=== PATIENT | female | born 1970 | race Hispanic/Latino ===

== ENCOUNTER 2022-01-01 07:30 | Observation (INO) | payer BC ==
[2021-12-31 09:10] LABS: BASOPHILS % (AUTO) 0.4 % (0.0-5.0); EOSINOPHILS % (AUTO) 0.9 % (0.0-8.0); HEMATOCRIT 38.8 % (36-48); LYMPHOCYTES % (AUTO) 29.5 % (21.0-51.0); MEAN CORPUSCULAR VOLUME 87.8 fL (79-99); MONOCYTES % (AUTO) 7.2 % (3.0-13.0); NEUTROPHILS % (AUTO) 61.8 % (40.0-77.0); PLATELET COUNT (AUTO) 185 K/uL (130-400); RED BLOOD CELL COUNT(AUTO) 4.42 MIL/uL (4.00-5.50); RED CELL DISTRIBUTION WIDTH 13.2 % (11.0-15.5); WHITE BLOOD COUNT (AUTO) 4.6 K/uL (4.8-10.8)
[2021-12-31 12:14] VITALS: BP 125/57
[2022-01-01] VITALS (22 sets, daily range): BP systolic 92–117; BP diastolic 47–69
[~2022-01-01] VITALS: Ht 160 cm; Wt 67.1 kg
[2022-01-01] MEDS ORDERED: METRONIDAZOLE 500MG/100ML BAG 100 ML ONE (08:36)
[2022-01-01] MEDS ORDERED: PHENAZOPYRIDINE HCL 200 MG TABLET ONE (08:37)
[2022-01-01] MEDS ORDERED: HEPARIN 5,000 UNIT VIAL ONE (08:37)
[2022-01-01] MEDS ORDERED: LACTATED RINGERS 1000ML 1,000 ML IV ONE (08:37)
[2022-01-01] MEDS ORDERED: ENOXAPARIN SODIUM 40 MG/0.4 ML SYRINGE SQ ONE (08:38)
[2022-01-01] MEDS ORDERED: DEXAMETHASONE SOD PHOSPHATE 4 MG/ML 1ML VIAL IV SCH (09:30)
[2022-01-01] MEDS ORDERED: CEFAZOLIN SODIUM 1 GM VIAL ONE (10:20)
[2022-01-01] MEDS ORDERED: ESTROGENS,CONJUGATED 0.625 MG/GM 42.5 GM VAG CRM VG ONE ×3 (10:35→13:02)
[2022-01-01] MEDS ORDERED: LIDOCAINE 1%-EPI 1:100,000 20 ML VIAL IJ ONE ×2 (10:41→12:45)
[2022-01-01] MEDS ORDERED: FAMOTIDINE 20MG VIAL IV ONE (10:51)
[2022-01-01] MEDS ORDERED: MIDAZOLAM HCL 1 MG/ML 2ML VIAL ONE (10:53)
[2022-01-01] MEDS ORDERED: PROPOFOL 10 MG/ML 20ML VIAL IV ONE (10:58)
[2022-01-01] MEDS ORDERED: FENTANYL CITRATE PF 50 MCG/1 ML 20ML VIAL IJ ONE (10:59)
[2022-01-01] MEDS ORDERED: GLYCOPYRROLATE 1 MG/5 ML SYRINGE ONE (10:59)
[2022-01-01] MEDS ORDERED: ROCURONIUM BROMIDE 10MG/1ML 5ML VL ONE (11:03)
[2022-01-01] MEDS ORDERED: HYDROMORPHONE 1 MG INJ ONE (11:27)
[2022-01-01] MEDS ORDERED: CEFAZOLIN SODIUM 2 GM VIAL IV ONE (11:35)
[2022-01-01] MEDS ORDERED: NEOSTIGMINE 5MG/5ML SYR IV ONE (12:04)
[2022-01-01] MEDS ORDERED: KETOROLAC 30MG VIAL (30MG/ML) ONE (13:46)
[2022-01-01] MEDS ORDERED: MORPHINE 2 MG SYG ONE (14:27)
[2022-01-01] MEDS ORDERED: MORPHINE 10MG VIAL IM PRN (16:30)
[2022-01-01] MEDS ORDERED: ONDANSETRON 4MG INJ IVP PRN (16:30)
[2022-01-01] MEDS ORDERED: LORAZEPAM 2 MG/ML 1 ML VIAL IVP PRN (16:30)
[2022-01-01] MEDS: ACETAMINOPHEN 500 MG TABLET PO SCH (16:46)
[2022-01-01] MEDS ORDERED: KETOROLAC 15MG/ML VIAL (15MG/ML) IV PRN (21:30)
[2022-01-02] MEDS: ACETAMINOPHEN 500 MG TABLET PO SCH (03:33)
[2022-01-02 03:39] VITALS: BP 99/53
[2022-01-02] MEDS ORDERED: CELE-84 PO (03:51)
[2022-01-02 07:28] VITALS: BP 95/54
== END 2022-01-02 08:05 | disposition home or self-care (01) ==
LOC: DAH 07:30 → DAHIP 07:31 → WSH 15:35
PROVIDERS: ADMIT Obstetrics & Gynecology; ATTEND Obstetrics & Gynecology
DX: N93.9 Abnormal uterine and vaginal bleeding, unspecified (principal); Z20.822 Contact with and (suspected) exposure to COVID-19; N39.3 Stress incontinence (female) (male); N81.4 Uterovaginal prolapse, unspecified; N81.89 Other female genital prolapse; K21.9 Gastro-esophageal reflux disease without esophagitis; N95.0 Postmenopausal bleeding; Z79.899 Other long term (current) drug therapy
CPT/HCPCS: 36415; 57260; 57288; 58262; 84703; 85025; 86850; 86900; 86901; 87635; 96372; 96374; 96375; A4215 ×2; A4221; A4222; A4223; A4344; A4351; A4510; A4600; A4663; A6260; C1771; C9803; G0378 ×17; J0690 ×2; J1100; J1170; J1650; J1885; J2060; J2250; J2270; J2704; J2710; J3010; J3490 ×6; J7030; J7120; J1644

== ENCOUNTER 2024-01-20 04:10 | Emergency (ER) | payer BC ==
[~2024-01-20] VITALS: Ht 160 cm; Wt 65.8 kg
[~2024-01-20 04:10] MED LIST: CYCL-309 PO; ESTR5PAT TD; MACR100 PO; MAGN400C PO; MULT-1367 PO; ZINC50TA15 PO
[2024-01-20 04:29] LABS: BASOPHILS # (AUTO) 0.03 K/uL (0.00-0.20); BASOPHILS % (AUTO) 0.5 % (0.0-5.0); EOSINOPHILS # (AUTO) 0.14 K/uL (0.00-0.70); EOSINOPHILS % (AUTO) 2.4 % (0.0-8.0); HEMATOCRIT 38.5 % (36-48); IMMATURE GRANULOCYTE ABSOLUTE 0.02 K/uL (0-1); LYMPHOCYTES # (AUTO) 1.6 K/uL (1.0-4.8); LYMPHOCYTES % (AUTO) 28.1 % (21.0-51.0); MEAN CORPUSCULAR HGB CONC 34.5 g/dL (32.0-36.0); MEAN CORPUSCULAR VOLUME 89.7 fL (79-99); MONOCYTES # (AUTO) 0.5 K/uL (0.1-1.0); MONOCYTES % (AUTO) 8.6 % (3.0-13.0); NEUTROPHILS # (AUTO) 3.5 K/uL (1.8-7.7); NEUTROPHILS % (AUTO) 60.1 % (40.0-77.0); PLATELET COUNT (AUTO) 278 K/uL (130-400); RED BLOOD CELL COUNT(AUTO) 4.29 MIL/uL (4.00-5.50); WHITE BLOOD COUNT (AUTO) 5.8 K/uL (4.8-10.8)
[2024-01-20 04:39] LABS: CREATININE 0.7 mg/dL (0.5-1.0); POTASSIUM 3.3 mmol/L (3.5-5.1)
[2024-01-20 04:42] LABS: INR <= 0.93 (0.85-1.15); PROTHROMBIN TIME 10.3 SEC (9.6-11.6)
[2024-01-20 04:43] LABS: PARTIAL THROMBOPLASTIN TIME 23.9 SEC (26.3-35.5)
[2024-01-20 04:49] LABS: ALBUMIN 3.8 g/dL (3.5-5.0); BILIRUBIN,TOTAL 0.2 mg/dL (0.2-1.0); MAGNESIUM 1.7 mg/dL (1.80-2.40); TOTAL PROTEIN, SERUM 7.1 g/dL (6.0-8.3)
[2024-01-20 04:55] LABS: B-TYPE NATRIURETIC PEPTIDE < 5 pg/mL (0-100)
[2024-01-20] MEDS: DICYCLOMINE HCL 10 MG/5 ML ML PO ONE (05:21)
[2024-01-20] MEDS: METOCLOPRAMIDE 10 MG/2 ML VIAL IVP ONE (05:21)
[2024-01-20] MEDS: FAMOTIDINE 20MG VIAL IV ONE (05:21)
[2024-01-20] MEDS: LIDOCAINE HCL 2% VISCOUS 15 ML UDCUP PO ONE (05:22)
[2024-01-20] MEDS: MAG/ALUM/SIMETH 30 ML UDCUP PO ONE (05:22)
[2024-01-20 05:55] VITALS: BP 120/65; PULSE 70; RESP 16; O2SAT 99
[2024-01-20] MEDS ORDERED: PANT40TA PO (06:34)
[2024-01-20] MEDS ORDERED: METO-296 PO (06:34)
[2024-01-20] MEDS: MAGNESIUM OXIDE 400 MG TABLET PO ONE (06:41)
[2024-01-20] MEDS: POTASSIUM BICARB/CIT AC 25 MEQ TABLET.EFF PO ONE (06:41)
== END 2024-01-20 06:48 | disposition home or self-care (01) ==
LOC: EDH 04:10
DX: K21.9 Gastro-esophageal reflux disease without esophagitis (principal); Z88.3 Allergy status to other anti-infective agents; Z90.49 Acquired absence of other specified parts of digestive tract; Z90.710 Acquired absence of both cervix and uterus
CPT/HCPCS: 99284; 96374; 71045; 96375; 83735; 84484; 80053; 83880; 85025; 85610; 85730; 36415; 93005; J3490; J2765